=== PATIENT | female | born 1950 | race Caucasian/White ===

== ENCOUNTER → 2017-09-13 | Outpatient (CLI) | payer MEDICARE ==
[~2017-09-13] MED LIST: IBU600 PO; LOR5 PO; NO ROUTINE MEDS
== END ==
LOC: LAB 10:41
PROVIDERS: ATTEND Anesthesiology
DX: M17.11 Unilateral primary osteoarthritis, right knee (principal)
CPT/HCPCS: 81001

== ENCOUNTER 2017-10-01 01:39 | Observation (INO) | payer MEDICARE ==
[2017-09-30 15:27] LABS: INR 0.97
[2017-10-01] VITALS (13 sets, daily range): BP systolic 73–143; BP diastolic 58–85
[~2017-10-01] VITALS: Ht 158.8 cm; Wt 98.0 kg
[~2017-10-01 01:39] MED LIST changes: +LISI-355 PO; +LISI20TA29 PO; +SIMV-49 PO; +ZOLP-350 PO
[2017-10-01] MEDS ORDERED: fentaNYL CITR 250 MCG/5 ML AMP ONE (12:34)
[2017-10-01] MEDS ORDERED: LIDOCAINE 2% IV 100 MG/5ML SYR ONE (12:35)
[2017-10-01] MEDS ORDERED: PROPOFOL EMUL(*) 10MG/ML 20 ML 20 ML ONE (12:35)
[2017-10-01] MEDS ORDERED: DEXAMETHASONE SOD PHOS 10MG/ML ONE (12:36)
[2017-10-01] MEDS ORDERED: ROPIVACAINE 0.5% 20 ML VIAL ONE (12:36)
[2017-10-01] MEDS ORDERED: DEXAMETHASONE SOD 4 MG/ML VIAL ONE (12:39)
[2017-10-01] MEDS ORDERED: ceFAZolin(*) 2GM/D5W 50ML 50 ML IVPB ONE (13:00)
[2017-10-01] MEDS ORDERED: cloNIDine EPIDUR INJ 100MCG/ML 40 MCG, ROPIVACAINE 0.5% 20 ML VIAL 25 ML, EPINEPHrine H... INJ ONE (13:00)
[2017-10-01] MEDS ORDERED: ACETAMINOPHEN 500 MG TAB PO ONE (13:00)
[2017-10-01] MEDS ORDERED: TRANEXAMIC AC 1000 MG/10ML SDV 1,000 MG in DEXTROSE 5% 50 ML BAG 50 ML IV ONE (13:00)
[2017-10-01] MEDS ORDERED: LIDOCAINE/SOD BICARB 8.4% SYR ID ONE (13:00)
[2017-10-01] MEDS ORDERED: CELECOXIB 200 MG CAP PO ONE (13:00)
[2017-10-01] MEDS ORDERED: FAMOTIDINE 20 MG TAB PO ONE (13:00)
[2017-10-01] MEDS ORDERED: NORMOSOL R SOLN(*) 1000 ML BAG 1,000 ML IV PRN ×2 (13:00→16:45)
[2017-10-01] MEDS ORDERED: PREGABALIN 150 MG CAPSULE PO ONE (13:00)
[2017-10-01] MEDS ORDERED: MIDAZOLAM 2 MG/2 ML VIAL IVP PRN (13:00)
[2017-10-01] MEDS ORDERED: ONDANSETRON 4 MG/2 ML VIAL ONE (14:31)
[2017-10-01] MEDS ORDERED: KETAMINE HCL 200 MG/20 ML MDV ONE ×2 (14:41→15:32)
[2017-10-01] MEDS ORDERED: LACTATED RINGER 3000 ML BAG IR ONE (15:11)
[2017-10-01] MEDS ORDERED: ROPIVACAINE 0.2% 400 MG/200ML 250 ML CONINFUS ONE (15:30)
[2017-10-01] MEDS ORDERED: fentaNYL CITR 100 MCG/2 ML AMP ONE ×2 (16:13→16:21)
[2017-10-01] MEDS ORDERED: HYDROmorphone HCL 2 MG/ML SDV ONE (16:27)
[2017-10-01] MEDS ORDERED: PROMETHAZINE 25 MG/ML 1 ML AMP IVP PRN (16:45)
[2017-10-01] MEDS ORDERED: ONDANSETRON 4 MG/2 ML VIAL IVP PRN (16:45)
[2017-10-01] MEDS ORDERED: ZOLPIDEM TARTRATE 5 MG TAB PO PRN (16:45)
[2017-10-01] MEDS ORDERED: MAGNESIUM HYDROXIDE* 30ML UDCP PO PRN (16:45)
[2017-10-01] MEDS ORDERED: BISACODYL 10 MG SUPP PR PRN (16:45)
[2017-10-01] MEDS ORDERED: FLUSH 10 ML SYR IVP PRN (16:45)
[2017-10-01] MEDS: ACETAMINOPHEN 500 MG TAB PO SCH (17:57)
[2017-10-01] MEDS: MORPHINE 4 MG/ML SDV IVP PRN (17:57)
[2017-10-01] MEDS: oxyCODONE HCL 5 MG CAP PO PRN (18:38)
--- NOTE | 2017-10-01 20:22 | RADIOLOGY IMAGING REPORT ---
FACILITY: [facility] PATIENT NAME: Enriqueta Greenfield : 1950 MR: [id number] V: [id number] EXAM DATE: ORDERING PHYSICIAN: SARA XIAO TECHNOLOGIST: Location: [facility] Patient: nEriqueta Greenfield : 1950 Visit/Account:[id number] Date of Sevice: 10/01/2017 KNEE LIMITED RIGHT COMPARISONS: None. ADDITIONAL PERTINENT HISTORY: Postop right total knee arthroplasty FINDINGS: Osseous structures: Patient status post total right knee arthroplasty. No bony fractures. Joint spaces: Components in good position. Air within the joint spaces about the right knee. Surrounding soft tissues: Surrounding subcutaneous emphysema. IMPRESSION: 1. Patient status post total right knee arthroplasty. 2. No acute appearing bony abnormalities. Report Dictated By: Zana Rodgers MD at 10/01/2017 8:15 PM Report E-Signed By: Zana Rodgers MD at 10/01/2017 8:18 PM [id number]
--- NOTE | 2017-10-01 21:19 | Hospitalist Consultation ---
History of Present Illness Requesting Physician Dr Wells Reason for Consult Management of chronic medical conditions Chief Complaint R knee DJD History of Present Illness 67F presented to [facility] for R TKA, PMHx significant for DARRELL, HTN, DJD. Underwent procedure without reported complications. On arrival from OR was hypoxic 2/2 pain medication and decreased respiratory drive in combination with DARRELL. Placed on BiPAP with improvement in oxygenation, O2 adequate while she is stimulated to remain awake. ASA is the plan for anticoagulation. History Problems: (1) DARRELL (obstructive sleep apnea) (2) HTN (hypertension) (3) Obesity (BMI 30-39.9) Home Meds Reported Medications Zolpidem Tartrate (AMBIEN) 10 Mg Tablet, 1 TAB PO QHS PRN for INSOMNIA, TAB 09/24/17 Simvastatin (SIMVASTATIN) 20 Mg Tablet, 20 MG PO HS, TAB 09/24/17 Lisinopril/Hydrochlorothiazide (LISINOPRIL-HCTZ 20-25 MG TAB) 1 Each Tablet, 1 EACH PO DAILY 09/24/17 Lisinopril (LISINOPRIL) 20 Mg Tablet, 20 MG PO QDAY, TAB 09/24/17 Discontinued Reported Medications Ibuprofen (Motrin) 600 Mg Tab, 600 MG PO Q6H, #20 0 Refills 02/02/09 Acetaminophen/Hydrocodone (Lortab 5/500) 5 Mg/500 Mg Tab, 1 TAB PO Q4-6H, #15 0 Refills 02/02/09 Allergies: Coded Allergies: No Known Drug Allergies (Verified , 09/24/17) Patient History: FH: diabetes mellitus BROTHER OR SISTER BROTHER OR SISTER FH: pancreatic cancer BROTHER OR SISTER Hx Smoking: No Caffeine Intake: Soda Caffeine/Cups Per Day: 60 OZ A DAY Hx Alcohol Use: Yes Hx Substance Use Disorder: No Social Drug Use: Never History of IV Drug Use: No Review of Systems All Systems Reviewed/Normal: Yes, Except as Noted Musculoskeletal: Pain (R knee) Exam Vital Signs Vital Signs Date Time Temp Pulse Resp B/P (MAP) Pulse Ox O2 Delivery O2 Flow Rate FiO2 10/01/17 20:30 103/73 (83) 10/01/17 20:15 70 95 Nasal Cannula 3.0 10/01/17 18:20 30.0 10/01/17 17:45 28 10/01/17 15:49 97.2 General Appearance: Alert, Awake, No Acute Distress, Afebrile Neuro: No Gross deficits Eyes: PERRLA ENT: Normal Neck: No Masses Cardiovascular: Normal Rhythm & Peripheral Pulses Respiratory: No Respiratory Distress (+ 3L NC) Chest: No Tenderness GI: Abd Soft and Non-Tender Lymph: Cervical Nodes Benign Musculoskeletal: No Weakness/Pain (other than R knee) Extremities: Soft and Non Tender, Warm, Pulses, Perfused Integumentary: Skin Intact without Lesion / Mass (R knee post operative changes.) Psych: Alert & Oriented X3 Assessment and Plan Problems: (1) DARRELL (obstructive sleep apnea) Assessment & Plan: BiPAP ordered given decreased LOC 2/2 pain medication. Per family was previously on CPAP but was told did not wear it often enough and had it taken away. (2) HTN (hypertension) Assessment & Plan: Low normal BP post-operatively. Resume HCTZ 25mg and lisinopril 20mg in am with hold parameters. Reduced dose lisinopril with limited data for dose efficacy > 20mg. (3) Right knee DJD Assessment & Plan: S/P R TKA, PT/OT consulted. Pain control per primary. Begin ASA 325mg for DVT PPx in am. (4) Obesity (BMI 30-39.9) Assessment & Plan: BMI 38.9, reportedly has lost some weight, probation counselor continued weight loss. Venous Thromboembolism Antithrombotics Is Pt On Any Antithrombotics?: Yes KYLE YU DO Oct 01, 2017 21:19
[2017-10-01] MEDS ORDERED: CEFEPIME HCL 2 GM VIAL IVP SCH (22:00)
[2017-10-01] MEDS: ceFAZolin 1 GM VIAL IVP SCH (22:00)
[2017-10-01] MEDS ORDERED: ceFAZolin(*) 2GM/D5W 50ML 50 ML IVPB SCH (22:00)
[2017-10-02] VITALS (9 sets, daily range): BP systolic 87–140; BP diastolic 49–112; Ht 158.8 cm; Wt 98.0 kg
[2017-10-02] MEDS: ACETAMINOPHEN 500 MG TAB PO SCH ×3 (01:03→17:51)
[2017-10-02] MEDS: oxyCODONE HCL 5 MG CAP PO PRN ×2 (04:37→12:51)
[2017-10-02] MEDS: ceFAZolin 1 GM VIAL IVP SCH ×2 (05:40→14:20)
[2017-10-02] MEDS: ASPIRIN 325 MG TAB PO SCH (09:47)
[2017-10-02] MEDS: LISINOPRIL 20 MG TAB PO SCH (09:47)
[2017-10-02] MEDS: KETOROLAC TROM 10MG TAB PO PRN ×2 (09:47→18:23)
[2017-10-02] MEDS: HYDROCHLOROTHIAZIDE 25 MG TAB PO SCH (09:47)
--- NOTE | 2017-10-02 11:14 | Hospitalist Progress Note ---
Subjective Progress Notes Subjective She has no complaints this morning. She had no acute events overnight. Patient Complains of: Cardiovascular: No: Chest Pain Respiratory: No: Shortness of Breath Physical Exam Vital Signs Date Time Temp Pulse Resp B/P (MAP) Pulse Ox O2 Delivery O2 Flow Rate FiO2 10/02/17 07:45 98 Nasal Cannula 2.0 10/02/17 07:41 97.5 59 14 93/57 (69) 10/02/17 00:30 40.0 Intake and Output 10/02/17 00:59 Intake Total 1600 ml Output Total 350 ml Balance 1250 ml IV Total 1600 ml Output Emesis 350 ml # Voids 1 # Emeses 2 General Appearance: Alert, Awake, No Acute Distress, Afebrile Neuro: No Gross deficits Cardiovascular: Regular Rate and Rhythm Respiratory: No Respiratory Distress, Clear to Auscultation GI: Soft and Non-Tender Psych: Alert & Oriented X3, Appropriate Mood & Affect Result Diagram: 10/02/17 0519 Assessment and Plan Problems: (1) Right knee DJD Assessment & Plan: S/P R TKA, PT/OT consulted. Pain control per primary. Begin ASA 325mg for DVT PPx in am. (2) DARRELL (obstructive sleep apnea) Assessment & Plan: BiPAP was ordered initially after surgery given decreased LOC 2/2 pain medication. Per family was previously on CPAP but was told did not wear it often enough and had it taken away. (3) HTN (hypertension) Assessment & Plan: Low normal BP post-operatively. Resume HCTZ 25mg and lisinopril 20mg in am with hold parameters. Reduced dose lisinopril with limited data for dose efficacy > 20mg. (4) Obesity (BMI 30-39.9) Assessment & Plan: BMI 38.9, reportedly has lost some weight, grief counselor continued weight loss. Exam Sepsis Risk: No Definite Risk MELVA KELLER SIGN BUILDER SUPERVISOR Oct 02, 2017 11:14
--- NOTE | 2017-10-02 12:51 | CARSON TKA ---
EVENT DATE: 10/01/2017 SURGEON: Asher Wells MD ANESTHESIOLOGIST: Bharat Lopez M.D. ANESTHESIA: Right adductor indwelling block followed by general anesthesia. We also utilized 1 gram of IV tranexamic acid ten minutes prior to start and after implantation of prosthesis. We also utilized 50 cc of our standard Toradol/ropivacaine cocktail. SKY CAP: GISELL Donald, FIELD SERVICE SPECIALIST PREOPERATIVE DIAGNOSIS Right knee degenerative joint disease. POSTOPERATIVE DIAGNOSIS Right knee degenerative joint disease. PROCEDURE PERFORMED Right total knee arthroplasty. IMPLANTS MicroPort Medial Pivot CS System with 5 femur, 4+ tibia, 12 mm CS insert and 29x8 symmetric patella, femur cut 6 degrees valgus, 10 mm. We utilized two packages of [employer] [place] blue cement and one ZipLine Wound Closure System. OPERATION The patient received appropriate preoperative antibiotic and was brought to the OR, where Dr. Lopez performed right adductor canal block with indwelling catheter followed by general anesthesia. Right thigh tourniquet was placed. Right lower extremity was prepped and draped int he usual sterile fashion. A midline incision was made followed by medial parapatellar arthrotomy. We dissected subperiosteally along the medial lateral plateau to the level of the semimembranosus insertion. Fat pad was excised. Patella was released and everted. The knee was brought up to hyperflexion. The ACL and PCL were released subperiosteally by Bovie. The remaining articular cartilage was removed from the distal femoral condyles by sagittal saw. Step-cut drill was utilized to broach the canal and placed intramedullary distal femoral guide, setting up the cutting block at 10 mm and 6 degrees valgus and this cut was made with care taken to protect the soft tissues. Three degree external rotation guide was then positioned, referencing off the anterior flange, posterior condyles and epicondyles. This was sized to #5 and 3-degree holes drilled. Four-in-one cutting guide was positioned followed by Z-retractors and four cuts made. The tibia was brought anteriorly on the femur with appropriate retractors. Step-cut drill was utilized to broach the tibial canal and we placed intramedullary tibial guide in reference for rotation and set up our cutting block at 10 mm. Retractors were placed and cut was made and this was sized to #4+. We then removed the stump of the ACL, PCL and medial and lateral meniscus by Bovie. Posterior osteophytes were removed by curved osteotome. Capsule was elevated with Lyman elevator. We then placed our trial tibial baseplate and pinned this in place and placed our 10, followed by 12 mm insert and #5 femur. We achieved full extension and flexion was limited by body habitus. She had satisfactory stability for varus and valgus stress from 0-90 degrees and at that point at 90 degrees she had solid endpoint anterior drawer. The knee was brought into full extension. The patella was measured and cut down 8 mm to accept an 8x29 symmetric patella, which was positioned inferiorly and medially. Peg hole was drilled and this accepted our trial. The knee was brought up in flexion. Peg hole was drilled to put the femur in place and we cut for trochlea chip and placed this. Again, we had the aforementioned range of motion stability and the patella tracked well. Patellofemoral and tibial insert were then removed. Appropriate retractors were placed to expose the tibia and we set up our keel tower, which was cut, reamed and punched. This instrumentation was removed. Bone plug was placed in the distal femur. We injected 10 cc of our cocktail in the posterior capsule. We then copiously irrigated by pulse lavage as we mixed two packages of cement. The knee was placed in appropriate position. We cemented the tibia followed by 12 mm insert and femur. Excess cement was removed. We placed the knee in full extension with axial compression while we cemented the patella. After 12 minutes, the cement had cured and, again, we had the aforementioned range of motion and stability. We copiously irrigated by pulse lavage once again. We placed the remaining cocktail in the distal femoral quad mechanism and closed the arthrotomy with #2 Vicryl followed by 2-0 Vicryl for the subcutaneous tissue and ZipLine Wound Closure for the skin. Compressive dressing was applied. The patient was extubated and taken to recovery in stable condition. Hospitalist team will be consulted for medical management and anticoagulation and PT for rehab. ТАТЬЯНА
[2017-10-02] MEDS: MORPHINE 4 MG/ML SDV IVP PRN (18:43)
[2017-10-03] MEDS: ACETAMINOPHEN 500 MG TAB PO SCH ×3 (00:28→16:56)
[2017-10-03 03:04] VITALS: BP 109/60
[2017-10-03] MEDS: oxyCODONE HCL 5 MG CAP PO PRN ×3 (07:17→22:20)
[2017-10-03 07:30] VITALS: BP 122/71
[2017-10-03] MEDS: KETOROLAC TROM 10MG TAB PO PRN ×2 (07:50→22:48)
--- NOTE | 2017-10-03 08:28 | RADIOLOGY IMAGING REPORT ---
FACILITY: [facility] PATIENT NAME: Enriqueta Greenfield : 1950 MR: [id number] V: [id number] EXAM DATE: ORDERING PHYSICIAN: SARA XIAO TECHNOLOGIST: Location: [facility] Patient: Enriqueta Greenfield : 1950 Visit/Account:[id number] Date of Sevice: 10/03/2017 3 views right ankle INDICATION: Postop ankle pain. COMPARISON: 02/02/2009. FINDINGS: 3 views of the right ankle. No acute fracture or dislocation. There is again a prominent ossicle supe rior to the posterior calcaneus on lateral view. No bony lesions or appreciable degenerative changes. Significant soft tissue swelling. No radiopaque foreign body. IMPRESSION: 1. No acute osseous abnormality of the right ankle. Significant soft tissue swelling. Report Dictated By: Doug Garvin at 10/03/2017 8:22 AM Report E-Signed By: Doug Garvin at 10/03/2017 8:24 AM WSN:[id number]
[2017-10-03] MEDS ORDERED: OXYC5CAP21 PO (08:32)
[2017-10-03] MEDS: HYDROCHLOROTHIAZIDE 25 MG TAB PO SCH (08:38)
[2017-10-03] MEDS: ASPIRIN 325 MG TAB PO SCH (08:38)
[2017-10-03] MEDS: LISINOPRIL 20 MG TAB PO SCH (08:38)
[2017-10-03 10:59] VITALS: BP 97/59
--- NOTE | 2017-10-03 11:33 | Hospitalist Progress Note ---
Subjective Progress Notes Subjective She has complaints of ankle pain this morning. She denies any trauma or injury to the ankle. She does report this happens occasionally at home. Patient Complains of: Cardiovascular: No: Chest Pain Respiratory: No: Shortness of Breath Physical Exam Vital Signs Date Time Temp Pulse Resp B/P (MAP) Pulse Ox O2 Delivery O2 Flow Rate FiO2 10/03/17 10:59 97.8 62 22 97/59 (72) 94 Room Air 10/03/17 08:00 2.0 10/02/17 00:30 40.0 Intake and Output 10/03/17 06:59 Intake Total 1010 ml Balance 1010 ml Intake Oral 1010 ml # Voids 6 General Appearance: Alert, Awake, No Acute Distress, Afebrile Neuro: No Gross deficits Cardiovascular: Regular Rate and Rhythm Respiratory: No Respiratory Distress, Clear to Auscultation Musculoskeletal: Other (right ankle swelling, strong in strength, no visable abnormality. ) Psych: Alert & Oriented X3, Appropriate Mood & Affect Result Diagram: 10/02/17 0519 Assessment and Plan Problems: (1) Right knee DJD Status: Acute Assessment & Plan: S/P R TKA, PT/OT consulted. Pain control per primary. Begin ASA 325mg for DVT PPx in am. (2) DARRELL (obstructive sleep apnea) Status: Chronic Assessment & Plan: BiPAP was ordered initially after surgery given decreased LOC 2/2 pain medication. Per family was previously on CPAP but was told did not wear it often enough and had it taken away. (3) HTN (hypertension) Assessment & Plan: Low normal BP post-operatively. Resume HCTZ 25mg and lisinopril 20mg in am with hold parameters. Reduced dose lisinopril with limited data for dose efficacy > 20mg. (4) Obesity (BMI 30-39.9) Assessment & Plan: BMI 38.9, reportedly has lost some weight, deputy general counsel continued weight loss. (5) Ankle pain Status: Acute Assessment & Plan: Ankle x-ray performed by Dr. Wells, suggests soft tissue swelling. No acute fractures noted. The pain was relieved with Tylenol. She will get mai bandage applied to ankle for relief of swelling. Exam Sepsis Risk: No Definite Risk Problem Qualifiers (1) HTN (hypertension): Hypertension type: essential hypertension Qualified Codes: I10 - Essential (primary) hypertension (2) Ankle pain: Chronicity: acute Laterality: right Qualified Codes: M25.571 - Pain in right ankle and joints of right foot MELVA KELLER SALVATIONIST Oct 03, 2017 11:33
[2017-10-03] MEDS: DOCUSATE SODIUM 100 MG CAP PO SCH ×2 (14:01→20:29)
[2017-10-03 15:18] VITALS: BP 103/59
[2017-10-03 20:26] VITALS: BP 96/51
[2017-10-03 22:21] VITALS: BP 102/80
[2017-10-04] MEDS: ACETAMINOPHEN 500 MG TAB PO SCH ×2 (00:57→08:57)
[2017-10-04 04:12] VITALS: BP 119/80
[2017-10-04 07:28] VITALS: BP 116/54
[2017-10-04] MEDS ORDERED: ASPI-757 PO (07:57)
[2017-10-04] MEDS: HYDROCHLOROTHIAZIDE 25 MG TAB PO SCH (08:55)
[2017-10-04] MEDS: LISINOPRIL 20 MG TAB PO SCH (08:56)
[2017-10-04] MEDS: DOCUSATE SODIUM 100 MG CAP PO SCH (08:57)
[2017-10-04] MEDS: ASPIRIN 325 MG TAB PO SCH (08:57)
[2017-10-04 08:59] VITALS: BP 114/63
--- NOTE | 2017-10-04 10:42 | DISCHARGE SUMMARY ---
DATE OF ADMISSION: October 01, 2017 DATE OF DISCHARGE: October 04, 2017 HISTORY Patient is a 67-year-old female admitted to Day Surgery, underwent right total knee arthroplasty. HOSPITAL COURSE Postoperatively, the Hospitalist team was consulted for medical management and anticoagulation, physical therapy for rehabilitation. She progressed in a slow and steady manner. On postop day #2, she did not have any knee pain but she had very significant ankle pain. This was treated with Toradol. X-rays were taken that showed no obvious pathology. There appeared to be a gouty or pseudogout reaction. There was no skin changes. Her exam was negative to the right ankle. On the day of discharge, this had resolved, the right knee wound was clean, dry, and intact. She was not having any significant pain. Discharge prescription will be for Oxy-IR 5 mg #30. She will have home health for physical therapy, aid and home CPM. We are planning to see her in 2 weeks in our [place] clinic. The Hospitalist and physical therapy were to clear the patient prior to discharge. Hospitalist team will transfer her medical management. PRINCIPAL DIAGNOSIS Right knee degenerative joint disease. PRINCIPAL PROCEDURE Right total knee arthroplasty. MTDD
[2017-10-04 11:45] VITALS: BP 120/80
[2017-10-04] MEDS: oxyCODONE HCL 5 MG CAP PO PRN (11:50)
--- NOTE | 2017-10-04 13:28 | Hospitalist Progress Note ---
Subjective Progress Notes Subjective She reports improvement in ankle pain. She had no acute events overnight. Patient Complains of: Cardiovascular: No: Chest Pain Respiratory: No: Shortness of Breath Physical Exam Vital Signs Date Time Temp Pulse Resp B/P (MAP) Pulse Ox O2 Delivery O2 Flow Rate FiO2 10/04/17 11:45 98.0 79 12 120/80 (93) 91 Room Air 10/04/17 04:12 1.0 10/02/17 00:30 40.0 Intake and Output 10/04/17 06:59 Intake Total 240 ml Balance 240 ml Intake Oral 240 ml # Voids 2 General Appearance: Alert, Awake, No Acute Distress, Afebrile Neuro: No Gross deficits Cardiovascular: Regular Rate and Rhythm Respiratory: No Respiratory Distress, Clear to Auscultation Extremities: Warm, Perfused, Edema (bilateral lower extremities) Psych: Alert & Oriented X3, Appropriate Mood & Affect Result Diagram: 10/02/17 0519 Assessment and Plan Problems: (1) Right knee DJD Status: Acute Assessment & Plan: S/P R TKA, PT/OT consulted. Pain control per primary. Begin ASA 325mg for DVT PPx. (2) DARRELL (obstructive sleep apnea) Status: Chronic Assessment & Plan: BiPAP was ordered initially after surgery given decreased LOC 2/2 pain medication. Per family was previously on CPAP but was told did not wear it often enough and had it taken away. (3) HTN (hypertension) Assessment & Plan: Low normal BP post-operatively. Resume Lisinopril- HCTZ. Advised patient to stop taking the extra Lisinopril 20mg tablet, and just take her combination BP medication. She should follow up with PCP within 1 week for blood pressure. (4) Obesity (BMI 30-39.9) Status: Chronic Assessment & Plan: BMI 38.9, reportedly has lost some weight, family life counselor continued weight loss. (5) Ankle pain Status: Acute Assessment & Plan: Ankle x-ray performed by Dr. Wells, suggests soft tissue swelling. No acute fractures noted. The pain was relieved with Tylenol. She will get mai bandage applied to ankle for relief of swelling. Exam Sepsis Risk: No Definite Risk Problem Qualifiers (1) HTN (hypertension): Hypertension type: essential hypertension Qualified Codes: I10 - Essential (primary) hypertension (2) Ankle pain: Chronicity: acute Laterality: right Qualified Codes: M25.571 - Pain in right ankle and joints of right foot MELVA KELLER [facility] Oct 04, 2017 13:28
== END 2017-10-04 13:30 | disposition home health service (06) ==
LOC: OR 01:39 → MED 17:45
PROVIDERS: ADMIT Orthopaedic Surgery; ATTEND Orthopaedic Surgery
DX: M17.11 Unilateral primary osteoarthritis, right knee (principal); I10 Essential (primary) hypertension; G47.33 Obstructive sleep apnea (adult) (pediatric); E66.9 Obesity, unspecified; M25.571 Pain in right ankle and joints of right foot
CPT/HCPCS: 27447; 36415; 73560; 73610; 76942; 81001; 85014; 85018; 85610; 86850; 86900; 86901; 94660; 97116; 97161; A9270; C1713; C1776; G0378; J0171; J0690; J0735; J1100; J1170; J1885; J2001; J2250; J2270; J2405; J2704; J2795; J3010; J3490; J7050; J7060